=== PATIENT | female | born 1995 ===

== ENCOUNTER 2023-03-16 02:13 | Inpatient (IN) | payer OTHER, BC ==
[2023-03-16] MEDS: Sodium Chloride 0.9% 1,000 ML IV SCH ×3 (03:30→13:04)
[2023-03-16] MEDS ORDERED: Carboprost Tromethamine 250 MCG/1 ML Amp IM PRN (03:55)
[2023-03-16] MEDS ORDERED: Lidocaine 1% 50 ML MDV INJECT PRN (03:55)
[2023-03-16] MEDS ORDERED: Water For Irrigation,Sterile 1,000 ML Container IRR PRN (03:55)
[2023-03-16] MEDS ORDERED: Sodium Chloride 0.9% 2.5 ML Syringe FLUSH PRN (03:55)
[2023-03-16] MEDS ORDERED: Methylergonovine 0.2 MG/1 ML Amp IM PRN ×2 (03:55→14:45)
[2023-03-16] MEDS ORDERED: Ondansetron 4 MG/2 ML SDV IVPUSH PRN ×4 (03:55→14:58)
[2023-03-16] MEDS ORDERED: Sodium Chloride 0.9% 10 ML Syringe FLUSH PRN (03:55)
[2023-03-16] MEDS ORDERED: Butorphanol 1 MG/ML SDV IVPUSH PRN (03:55)
[2023-03-16] MEDS ORDERED: Misoprostol 200 MCG Tab PO PRN (03:55)
[2023-03-16] MEDS ORDERED: Sodium Chloride 0.9% 20 ML SDV IV PRN (03:55)
[2023-03-16] MEDS ORDERED: Tranexamic Acid 1,000 MG in Sodium Chloride 0.9% 100 ML IV PRN ×2 (03:55→14:45)
[2023-03-16] MEDS ORDERED: Ampicillin 2 GM in Sodium Chloride 0.9% 100 ML IV ONE (04:00)
[2023-03-16] MEDS ORDERED: Oxytocin/0.9 % Sodium Chloride 30 UNIT/500 ML BAG IV SCH ×3 (04:00→14:45)
[2023-03-16] MEDS ORDERED: Dexmedetomidine 200 MCG/2 ML SDV ONE (05:04)
[2023-03-16] MEDS ORDERED: Ropivacaine/PF 400 MG/200 ML PCA ONE (05:04)
[2023-03-16] MEDS ORDERED: Phenylephrine HCl 0.5 MG/5 ML AMP ONE ×3 (05:04→14:25)
[2023-03-16] MEDS ORDERED: ePHEDrine 50 MG/ML SDV IVPUSH PRN ×3 (05:17→14:58)
[2023-03-16] MEDS ORDERED: Phenylephrine HCl 0.5 MG/5 ML AMP IVPUSH PRN (05:17)
[2023-03-16] MEDS ORDERED: Ropivacaine HCl/PF 400 MG in Premix Bag 1 BAG EPIDUR SCH (05:30)
[2023-03-16] MEDS ORDERED: Terbutaline 1 MG/ML SDV SUBCUT PRN (06:41)
[2023-03-16] MEDS: Ampicillin 1 GM in Sodium Chloride 0.9% 50 ML IV SCH ×2 (07:57→12:00)
[2023-03-16] MEDS ORDERED: Tranexamic Acid 1,000 MG/10 ML Vial ONE ×2 (13:00→14:26)
[2023-03-16] MEDS ORDERED: Misoprostol 200 MCG Tab ONE (13:01)
[2023-03-16] MEDS ORDERED: Carboprost Tromethamine 250 MCG/1 mL Vial ONE (13:02)
[2023-03-16] MEDS ORDERED: Methylergonovine 0.2 MG/1 ML Amp ONE (13:03)
[2023-03-16] MEDS ORDERED: Bupivacaine 0.5% 10 ML SDV ONE (13:46)
[2023-03-16] MEDS ORDERED: Azithromycin 500 MG Vial ONE ×2 (13:57→14:28)
[2023-03-16] MEDS ORDERED: Sodium Chloride 0.9% 250 ML ONE (13:59)
[2023-03-16] MEDS ORDERED: Morphine PF 10 MG/10 ML SDV ONE (14:10)
[2023-03-16] MEDS ORDERED: Ketorolac 30 MG/ML SDV ONE (14:11)
[2023-03-16] MEDS ORDERED: Dexamethasone 4 MG/ML 5 ML MDV ONE (14:26)
[2023-03-16] MEDS ORDERED: Ondansetron 4 MG/2 ML SDV ONE (14:26)
[2023-03-16] MEDS ORDERED: Oxytocin 10 Units/1 ML SDV ONE (14:26)
[2023-03-16] MEDS ORDERED: ceFAZolin 2 GM Vial ONE (14:28)
[2023-03-16] MEDS ORDERED: Misoprostol 200 MCG Tab RECTAL PRN (14:45)
[2023-03-16] MEDS ORDERED: Lanolin 100% Cream 7 GM Tube TOP PRN (14:45)
[2023-03-16] MEDS ORDERED: Lactated Ringers 1,000 ML IV SCH (14:45)
[2023-03-16] MEDS ORDERED: Oxytocin 10 Units/1 ML SDV IM PRN (14:45)
[2023-03-16] MEDS ORDERED: diphenhydrAMINE 50 MG/ML SDV IVPUSH PRN (14:45)
[2023-03-16] MEDS ORDERED: Acetaminophen/oxyCODONE 325-5 MG Tab PO PRN ×2 (14:45→14:58)
[2023-03-16] MEDS ORDERED: Bisacodyl 10 MG Supp RECTAL PRN (14:45)
[2023-03-16] MEDS ORDERED: Ibuprofen 800 MG Tab PO PRN (14:45)
[2023-03-16] MEDS ORDERED: Naloxone 0.4 MG/ML SDV IVPUSH PRN (14:58)
[2023-03-16] MEDS ORDERED: droPERidol 5 MG/2 ML SDV IVPUSH PRN (14:58)
[2023-03-16] MEDS ORDERED: fentaNYL 50 MCG/ML SDV IVPUSH PRN (14:58)
[2023-03-16] MEDS ORDERED: Metoclopramide 10 MG/2 ML SDV IVPUSH PRN (14:58)
[2023-03-16] MEDS ORDERED: fentaNYL 100 MCG/2 ML SDV IVPUSH PRN (14:58)
[2023-03-16] MEDS ORDERED: HYDROmorphone 1 MG/ML Syringe IVPUSH PRN (14:58)
[2023-03-16] MEDS ORDERED: Morphine 2 MG/ML SYRINGE IVPUSH PRN (14:58)
[2023-03-16] MEDS ORDERED: Albuterol 0.083% 2.5 MG/3 ML Neb Soln NEB PRN (14:58)
[2023-03-16] MEDS: Ketorolac 30 MG/ML SDV IVPUSH SCH ×2 (17:56→21:03)
[2023-03-16] MEDS: diphenhydrAMINE 50 MG/ML SDV IVPUSH PRN ×2 (18:19→21:04)
[2023-03-16] MEDS: Docusate Sodium 100 MG Cap PO SCH (21:04)
[2023-03-17] MEDS: Ketorolac 30 MG/ML SDV IVPUSH SCH ×3 (03:01→15:46)
[2023-03-17 06:15] LABS: CARBON DIOXIDE,CO2 20.1 mmol/L (21.0-32.0)
[2023-03-17] MEDS: Docusate Sodium 100 MG Cap PO SCH ×2 (09:18→22:01)
[2023-03-17] MEDS: Acetaminophen/oxyCODONE 325-5 MG Tab PO PRN ×2 (14:22→22:14)
[2023-03-18] MEDS: Acetaminophen/oxyCODONE 325-5 MG Tab PO PRN ×3 (02:52→13:09)
[2023-03-18] MEDS: Docusate Sodium 100 MG Cap PO SCH (09:22)
== END 2023-03-18 18:00 | disposition home or self-care (01) | DRG 788 ==
LOC: MW.OBCHECK 02:13 → MW.OB 02:14 → MW.OBCHECK 03:54 → MW.OB 03:55 → MW.MS 06:48 → MW.OB 06:58 → OBSVTOIN 14:46 → MW.OB 18:30
PROVIDERS: ADMIT Obstetrics & Gynecology; ATTEND Obstetrics & Gynecology
PROC: 10D00Z1 Extraction of Products of Conception, Low, Open Approach (ICD-10-PCS; principal; 2023-03-16)
DX: O24.420 Gestational diabetes mellitus in childbirth, diet controlled (principal); O99.824 Streptococcus B carrier state complicating childbirth; O99.214 Obesity complicating childbirth; Z3A.37 37 weeks gestation of pregnancy; Z37.0 Single live birth
CPT/HCPCS: 01967; 01968; 36415; 51702; 80048; 82803; 82947; 84112; 85014; 85018; 85027; 86592; 86850; 86900; 86901; A9270-GY; J0290; J0456; J0690; J1100; J1200; J1885; J2274; J2370; J2405; J2590; J2795; J3490; J7030

== ENCOUNTER 2025-06-23 08:32 | Inpatient (IN) | payer BC, OTHER ==
[2025-06-23] MEDS ORDERED: Sodium Chloride 0.9% 10 ML Syringe FLUSH PRN (08:43)
[2025-06-23] MEDS ORDERED: Sodium Chloride 0.9% 2.5 ML Syringe FLUSH PRN (08:43)
[2025-06-23] MEDS ORDERED: Citric Acid/Sodium Citrate Solution 30 ML Cup PO ONE (08:43)
[2025-06-23] MEDS ORDERED: ceFAZolin 2 GM in Water For Injection, Sterile 20 ML IVPUSH ONE (08:43)
[2025-06-23] MEDS ORDERED: Oxytocin/0.9 % Sodium Chloride 30 UNIT/500 ML BAG IV SCH (08:45)
[2025-06-23] MEDS: Lactated Ringers 1,000 ML IV SCH (09:10)
[2025-06-23 09:15] LABS: MEAN PLATELET VOLUME 12.2 fL (9.4-12.3); NRBC ABSOLUTE 0.00 K/uL (0.00-0.02); NRBC PERCENT 0.0 /100WBC (0.0-0.2); PLATELET COUNT,PLT 172 K/uL (150-400); RED BLOOD CELL COUNT 4.80 M/uL (4.10-5.30); WHITE BLOOD CELL COUNT,WBC 8.52 K/uL (3.9-11.3)
[2025-06-23] MEDS ORDERED: fentaNYL 100 MCG/2 ML SDV ONE (10:44)
[2025-06-23] MEDS ORDERED: Ropivacaine 0.5% 5 MG/ML 30 ML SDV ONE (10:45)
[2025-06-23] MEDS ORDERED: Morphine PF 10 MG/10 ML SDV ONE (10:45)
[2025-06-23] MEDS ORDERED: Ondansetron 4 MG/2 ML SDV ONE ×2 (10:55→12:21)
[2025-06-23] MEDS ORDERED: Dexamethasone 4 MG/ML 5 ML MDV ONE (11:41)
[2025-06-23] MEDS ORDERED: Oxytocin 10 Units/1 ML SDV ONE (11:49)
[2025-06-23] MEDS ORDERED: Ketorolac 30 MG/ML SDV ONE (12:07)
[2025-06-23] MEDS ORDERED: ePHEDrine 50 MG/ML SDV ONE (12:07)
[2025-06-23] MEDS ORDERED: Acetaminophen/oxyCODONE 325-5 MG Tab PO PRN (12:37)
[2025-06-23] MEDS ORDERED: Lanolin 100% Cream 7 GM Tube TOP PRN (12:37)
[2025-06-23] MEDS ORDERED: diphenhydrAMINE 50 MG/ML SDV IVPUSH PRN (12:37)
[2025-06-23] MEDS ORDERED: Oxytocin 10 Units/1 ML SDV IM PRN (12:37)
[2025-06-23] MEDS ORDERED: Ondansetron 4 MG/2 ML SDV IVPUSH PRN (12:37)
[2025-06-23] MEDS ORDERED: Naloxone 0.4 MG/ML SDV IVPUSH PRN (12:37)
[2025-06-23] MEDS ORDERED: Ketorolac 30 MG/ML SDV IVPUSH SCH (12:45)
[2025-06-23] MEDS ORDERED: Lactated Ringers 1,000 ML IV SCH (12:45)
[2025-06-23 13:23] LABS: PH,UMBILICAL ARTERIAL 7.32 (7.18-7.38); PH,UMBILICAL VENOUS 7.34 (7.25-7.45)
[2025-06-23] MEDS: Ketorolac 30 MG/ML SDV IVPUSH SCH (17:55)
[2025-06-24 07:25] LABS: BLOOD UREA NITROGEN,BUN 13.0 mg/dL (7.0-18.0); CARBON DIOXIDE,CO2 24.1 mmol/L (21.0-32.0); CHLORIDE,CL 104.0 mmol/L (98-107); CREATININE 0.7 mg/dL (0.6-1.0); EST CRCL DRUG DOSING (CG) 96.33 mL/min; GLUCOSE RANDOM 94.0 mg/dL (74-106); POTASSIUM,K 3.9 mmol/L (3.5-5.1); SODIUM,NA 137.0 mmol/L (136-145)
[2025-06-24 07:31] LABS: ESTIMATED GFR 119.0 mL/min (>60)
[2025-06-24] MEDS: Acetaminophen/oxyCODONE 325-5 MG Tab PO PRN (17:14)
== END 2025-06-25 18:35 | disposition home or self-care (01) | DRG 540 ==
LOC: OBSVTOIN 08:32 → MW.OB 08:32
PROVIDERS: ADMIT Obstetrics & Gynecology; ATTEND Obstetrics & Gynecology
PROC: 10D00Z1 Extraction of Products of Conception, Low, Open Approach (ICD-10-PCS; principal; 2025-06-23 11:30)
DX: O34.211 Maternal care for low transverse scar from previous cesarean delivery (principal); O24.420 Gestational diabetes mellitus in childbirth, diet controlled; Z3A.39 39 weeks gestation of pregnancy; Z37.0 Single live birth; Z79.899 Other long term (current) drug therapy; O99.824 Streptococcus B carrier state complicating childbirth; D62 Acute posthemorrhagic anemia
CPT/HCPCS: 01961; 36415; 59025; 64488; 80048; 82803; 85014; 85018; 85027; 86592; 86850; 86900; 86901; A9270-GY; J0166; J1100; J1308; J1885; J2274; J2405; J2590; J2795; J3010; J3490; J7120